=== PATIENT | female | born 1955 | race American Indian/Alaskan Native ===

== ENCOUNTER 2016-08-16 09:05 | Emergency (ER) | payer MEDICARE ==
--- NOTE | 2016-08-16 10:05 | XRay Report ---
Chest 2 views: History: Shortness of breath. Findings: Normal cardiomediastinal silhouette. Trachea is midline. Infiltrates right lower lobe. Normal CP angles. Impression: Right lower lobe infiltrates.
[2016-08-16 10:20] LABS: Basophils % (Auto) 0.4 % (0.0-1.8); Eosinophils % (Auto) 0.4 % (0.0-4.3); Hematocrit 38.4 % (30.3-42.9); Hemoglobin 12.9 gm/dl (10.1-14.3); Mean Corpuscular HGB Conc 34 % (30-34); Mean Corpuscular Hemoglobin 29 pg (28-32); Mean Corpuscular Volume 87 fl (79-97); Platelet Count 188 K/mm3 (140-440); Red Cell Distribution Width 12.6 % (13.2-15.2); White Blood Count 5.4 K/mm3 (4.5-11.0)
[2016-08-16 10:36] LABS: Anion Gap 15 mmol/L; BUN/Creatinine Ratio 6.66; Blood Urea Nitrogen 4 mg/dL (7-17); Carbon Dioxide 29 mmol/L (22-30); Chloride 95.1 mmol/L (98-107); Glucose 92 mg/dL (65-100); Potassium 3.5 mmol/L (3.6-5.0); Sodium 136 mmol/L (137-145)
[2016-08-16] MEDS ORDERED: TORADOL IV ONE (20:23)
[2016-08-16] MEDS ORDERED: ROCEPHIN/NS 1 GM/50 ML 1 GM/50 ML BAG IV ONE (20:23)
[2016-08-16] MEDS ORDERED: TESSALON PERLES PO ONE (20:23)
[2016-08-16] MEDS ORDERED: IMODIUM A-D PO ONE (20:23)
[2016-08-16] MEDS ORDERED: NORCO 5/325 PO ONE (20:23)
[2016-08-16] MEDS ORDERED: PHENERGAN PO ONE (20:23)
[2016-08-16] MEDS ORDERED: NACL 0.9% 1000 ML 1,000 ML IV ONE (20:27)
[2016-08-16] MEDS ORDERED: ZITHROMAX 500 MG in NACL 0.9% 250ML 250 ML IV ONE (21:00)
[2016-08-16] MEDS ORDERED: IMODIUM ONE (22:03)
--- NOTE | 2016-08-16 23:01 | Emergency Department Report ---
- General Chief Complaint: Upper Respiratory Infection Stated Complaint: FLU SYMPTOMS/SOB Time Seen by Provider: 08/16/16 19:55 Source: patient Mode of arrival: Wheelchair Limitations: No Limitations - History of Present Illness Initial Comments: 60-year-old female with a past medical history uterine cancer, diabetes, cholecystectomy and previous hysterectomy presents to the hospital complains of cough, headache, body aches, fever, diarrhea, and chills for the past 5 days. Cough productive of green mucus. Positive global headache. Positive fever and chills. Generalized intermittent abdominal cramping with associated diarrhea. Taking [id number] TheraFlu and Tylenol without relief. Overall pain is rated 4/10 in intensity and worse with palpation without alleviating factors. Patient complains of feeling lightheaded and dizzy with generalized weakness. She states she has never received a flu shot - Related Data Previous Rx's Medication Instructions Recorded Last Taken Type Azithromycin [Zithromax Z-DOM] 1 mg PO DAILY 5 Days 08/17/16 Unknown Rx Benzonatate [Tessalon Perles] 100 mg PO Q8HR PRN #30 capsule 08/17/16 Unknown Rx Ibuprofen [Motrin] 600 mg PO Q8H PRN #30 tablet 08/17/16 Unknown Rx Loperamide HCl [Imodium A-D] 2 mg PO Q2HR #14 tablet 08/17/16 Unknown Rx Promethazine [Phenergan TAB] 25 mg PO Q6HR PRN #30 tab 08/17/16 Unknown Rx traMADol [Ultram 50 MG tab] 50 mg PO Q6HR PRN #20 tablet 08/17/16 Unknown Rx Allergies Allergy/AdvReac Type Severity Reaction Status Date / Time [id number] [From Lubriderm] AdvReac Rash Verified 08/16/16 09:21 lanolin [From Lubriderm] AdvReac Rash Verified 08/16/16 09:21 latex AdvReac Rash Verified 08/16/16 09:21 mineral oil [From Lubriderm] AdvReac Rash Verified 08/16/16 09:21 petrolatum,white AdvReac Rash Verified 08/16/16 09:21 [From Lubriderm] soap [From Lubriderm] AdvReac Rash Verified 08/16/16 09:21 ED Review of Systems ROS: Stated complaint: FLU SYMPTOMS/SOB Other details as noted in HPI Comment: All other systems reviewed and negative Other: Constitutional: Positive fever and chills Eyes: No eye pain visual changes ENT: Right sided throat pain Neck: Denies pain Respiratory: Positive cough Cardiovascular: Denies chest pain, palpitations, syncope GI: Positive nausea denies vomiting : Denies dysuria Musculoskeletal: Denies back pain Skin: Denies rash, lesions, erythema Neurologic: Positive headache Psychiatric: Denies suicidal ideation, hallucinations ED Past Medical Hx - Past Medical History Hx Diabetes: Yes (NO MEDS; LOST WT) Hx of Cancer: Yes (UTERINE) - Surgical History Hx Cholecystectomy: Yes Additional Surgical History: HYSTERECTOMY - Social History Smoking Status: Never Smoker Substance Use Type: None - Medications Home Medications: Home Medications Medication Instructions Recorded Confirmed Last Taken Type Azithromycin [Zithromax Z-DOM] 1 mg PO DAILY 5 Days 08/17/16 Unknown Rx Benzonatate [Tessalon Perles] 100 mg PO Q8HR PRN #30 capsule 08/17/16 Unknown Rx Ibuprofen [Motrin] 600 mg PO Q8H PRN #30 tablet 08/17/16 Unknown Rx Loperamide HCl [Imodium A-D] 2 mg PO Q2HR #14 tablet 08/17/16 Unknown Rx Promethazine [Phenergan TAB] 25 mg PO Q6HR PRN #30 tab 08/17/16 Unknown Rx traMADol [Ultram 50 MG tab] 50 mg PO Q6HR PRN #20 tablet 08/17/16 Unknown Rx ED Physical Exam - General Limitations: No Limitations - Other Other exam information: General: No limitations, patient is alert in no acute distress Head exam: Atraumatic, normocephalic Eyes exam: Normal appearance, pupils equal reactive to light, extraocular movements intact ENT: Moist mucous membrane, normal oropharynx, no exudate Neck exam: Normal inspection, full range of motion, no meningismus nontender Respiratory exam: Rhonchi right base, frequent cough, no tachypnea or accessory muscle use Cardiovascular: Normal rate and rhythm, normal heart sounds Abdomen: Soft, nondistended, mild generalized midabdominal tenderness, with normal bowel sounds, no rebound, or guarding Extremity: Full range of motion normal inspection no deformity Back: Normal Inspection, full range of motion, no tenderness Neurologic: Alert, oriented x3, cranial nerves intact, no motor or sensory deficit Psychiatric: normal affect, normal mood Skin: Warm, dry, intact ED Course Vital Signs 08/16/16 08/16/16 08/16/16 09:23 22:00 23:57 Temperature 99.8 F H 98.4 F Pulse Rate 96 H 77 79 Respiratory 20 14 12 Rate Blood Pressure 143/78 Blood Pressure 139/71 120/63 [Left] O2 Sat by Pulse 97 99 99 Oximetry ED Medical Decision Making - Lab Data Result diagrams: 08/16/16 10:10 08/16/16 10:10 Lab Results 08/16/16 08/16/16 Range/Units 10:10 10:10 WBC 5.4 (4.5-11.0) K/mm3 RBC 4.40 (3.65-5.03) M/mm3 Hgb 12.9 (10.1-14.3) gm/dl Hct 38.4 (30.3-42.9) % MCV 87 (79-97) fl MCH 29 (28-32) pg MCHC 34 (30-34) % RDW 12.6 L (13.2-15.2) % Plt Count 188 (140-440) K/mm3 Lymph % (Auto) 20.1 (13.4-35.0) % [place] % (Auto) 10.3 H (0.0-7.3) % Eos % (Auto) 0.4 (0.0-4.3) % Baso % (Auto) 0.4 (0.0-1.8) % Lymph # 1.1 L (1.2-5.4) K/mm3 [place] # 0.6 (0.0-0.8) K/mm3 Eos # 0.0 (0.0-0.4) K/mm3 Baso # 0.0 (0.0-0.1) K/mm3 Seg Neutrophils % 68.8 (40.0-70.0) % Seg Neutrophils # 3.7 (1.8-7.7) K/mm3 Sodium 136 L (137-145) mmol/L Potassium 3.5 L (3.6-5.0) mmol/L Chloride 95.1 L (98-107) mmol/L Carbon Dioxide 29 (22-30) mmol/L Anion Gap 15 mmol/L BUN 4 L (7-17) mg/dL Creatinine 0.6 L (0.7-1.2) mg/dL Estimated GFR > 60 ml/min BUN/Creatinine Ratio 6.66 % Glucose 92 (65-100) mg/dL Calcium 9.0 (8.4-10.2) mg/dL Troponin T < 0.010 (0.00-0.029) ng/mL - EKG Data -: EKG Interpreted by Me (nsr rate 88 lae, lvh) - Radiology Data Radiology results: report reviewed (chest x-ray: right lower lobe infiltrate) - Medical Decision Making Patient received Rocephin, azithromycin, Imodium, Phenergan, potassium, normal saline, Tessalon Perles, and Toradol in the ED. She declined [place]. She reports symptoms improving with ED treatment. - Differential Diagnosis pneumonia, viral syndrome, bronchitis, enteritis Critical Care Time: No Critical care attestation.: If time is entered above; I have spent that time in minutes in the direct care of this critically ill patient, excluding procedure time. ED Disposition Clinical Impression: Right lower lobe pneumonia, Diarrhea, Hypokalemia Disposition: DISCHARGED TO HOME OR SELFCARE Is pt being admited?: No Does the pt Need Aspirin: No Condition: Stable Instructions: Community-acquired Pneumonia (ED), Acute Diarrhea (ED), Hypokalemia (ED) Additional Instructions: Take the medication as prescribed. Please return if symptoms continue to worsen instead of improve. Follow-up with a physician within 2-3 days. Follow -up with your primary care doctor or the alternative physician or clinic provided. Prescriptions: Azithromycin [Zithromax Z-DOM] 1 mg PO DAILY 5 Days Benzonatate [Tessalon Perles] 100 mg PO Q8HR PRN #30 capsule PRN Reason: Cough Ibuprofen [Motrin] 600 mg PO Q8H PRN #30 tablet PRN Reason: Pain Loperamide HCl [Imodium A-D] 2 mg PO Q2HR #14 tablet Promethazine [Phenergan TAB] 25 mg PO Q6HR PRN #30 tab PRN Reason: Nausea traMADol [Ultram 50 MG tab] 50 mg PO Q6HR PRN #20 tablet PRN Reason: Pain Referrals: PRIMARY CARE, [Primary Care Provider] - 3-5 Days CHEMO WELLS MD [Staff Physician] - 3-5 Days [facility] [Provider Group] - 3-5 Days Time of Disposition: 00:18
[2016-08-16] MEDS ORDERED: K-DUR PO ONE (23:56)
[2016-08-16 23:57] VITALS: BP 120/63
== END 2016-08-17 01:30 | disposition home or self-care (01) ==
LOC: ED 09:05
DX: J18.9 Pneumonia, unspecified organism (principal); E87.6 Hypokalemia; R19.7 Diarrhea, unspecified; E11.9 Type 2 diabetes mellitus without complications; Z85.42 Personal history of malignant neoplasm of other parts of uterus
CPT/HCPCS: 36415; 71020; 80048; 84484; 85025; 93005; 93010; 96365; 96367; 96375; 99284; J0456; J0696; J1885; J7030; J7050; Q0169